=== PATIENT | female | born 1970 | race Caucasian/White ===

== ENCOUNTER → 2020-04-15 | Day surgery (SDC) | payer OTHER ==
[~2020-04-15] MED LIST: HYDROXYZINE HCL25 MG PO; HYOSCYAMINE 0.125 MG TAB ONE; METFORMIN HCL500 MG PO; METOPROLOL TART25 MG PO; PAMELOR25 MG PO; PROPRANOLOL HCL10 MG PO; PROTONIX20 MG PO; RISPERIDONE1 MG PO; ROBAXIN-750750 MG PO
[2020-04-15 15:25] VITALS: BP 120/57
--- NOTE | 2020-04-15 15:29 | Operative Report ---
DATE OF PROCEDURE: 04/15/2020 SURGEON: Adama Lerner MD PROCEDURE: Colonoscopy with polypectomy. INDICATIONS FOR COLONOSCOPY: Rectal bleeding, history of diverticulitis. MEDICATIONS: The patient was done under MAC. Please see anesthesiologist's note. PROCEDURE IN DETAIL: With the patient in left lateral decubitus position, a flexible fiberoptic Olympus colonoscope was inserted into the rectum with ease and advanced all the way to the cecum. A minute polyp was removed per cold biopsy forceps from the cecum, ascending, transverse appeared to be within normal limits. Diverticular disease was noted to involve the distal descending and the sigmoid colon. Two polyps were hot biopsied from the sigmoid colon. The scope was then retroflexed into the distal rectum and small internal hemorrhoids were noted, none of which was actively bleeding. The scope was then straightened out and it was subsequently withdrawn. Patient tolerated the procedure well. IMPRESSION: 1. Cecal polyp, cold biopsied. 2. Diverticulosis. 3. Sigmoid colon polyp x2, hot biopsied. 4. Internal hemorrhoids, none actively bleeding. PLAN: Follow up histology. Initiate high-fiber, low-fat diet. Initiate high-fiber supplement. Hydrocortisone suppositories 25 mg b.i.d. x10 days and then p.r.n. The patient might benefit from a followup colonoscopy in 3 years. Adama Lerner MD [facility] [place] /[id number] cc: Preeti Grimaldo MD
== END | disposition home or self-care (01) ==
LOC: OR 11:40
PROVIDERS: ATTEND Internal Medicine Gastroenterology
DX: K57.92 Diverticulitis of intestine, part unspecified, without perforation or abscess without bleeding (principal); D12.0 Benign neoplasm of cecum; K64.8 Other hemorrhoids; K62.5 Hemorrhage of anus and rectum; K21.9 Gastro-esophageal reflux disease without esophagitis; G47.33 Obstructive sleep apnea (adult) (pediatric); R00.0 Tachycardia, unspecified; E11.9 Type 2 diabetes mellitus without complications; G25.81 Restless legs syndrome; I10 Essential (primary) hypertension; E66.01 Morbid (severe) obesity due to excess calories; F25.9 Schizoaffective disorder, unspecified; Z88.0 Allergy status to penicillin; Z88.2 Allergy status to sulfonamides; Z91.040 Latex allergy status; Z01.810 Encounter for preprocedural cardiovascular examination; Z01.812 Encounter for preprocedural laboratory examination; Z11.59 Encounter for screening for other viral diseases; Z79.84 Long term (current) use of oral hypoglycemic drugs; Z68.43 Body mass index [BMI] 50.0-59.9, adult
CPT/HCPCS: 36415; 45378; 82948; 87635; 93005

== ENCOUNTER → 2020-08-01 | Outpatient (CLI) | payer OTHER ==
[~2020-08-01] MED LIST changes: -HYOSCYAMINE 0.125 MG TAB ONE
== END ==
LOC: RESP 12:48
PROVIDERS: ATTEND Internal Medicine
DX: R06.09 Other forms of dyspnea (principal)
CPT/HCPCS: 71046; 94060; 94664; 94727; 94729

== ENCOUNTER → 2020-08-15 | Outpatient (CLI) | payer OTHER | LOC: SLEEP 19:36 | PROVIDERS: ATTEND Internal Medicine | DX: G47.33 Obstructive sleep apnea (adult) (pediatric) (principal); Z11.59 Encounter for screening for other viral diseases | CPT/HCPCS: 95810; U0002 ==

== ENCOUNTER 2025-07-07 13:48 | Emergency (ER) | payer OTHER ==
[~2025-07-07] VITALS: Ht 167.6 cm; Wt 167.1 kg
[~2025-07-07 13:48] MED LIST changes: +ACETAMINOPHEN-1 EAC4 PO; +ALBUTEROL0.63 MG/3 NEB; +CLONAZEPAM0.5 MG PO; +DOXEPIN HCL25 MG PO; +FIBER LAX625 MG PO; +GEODON20 MG PO; +INGREZZA80 MG PO; +LEXAPRO20 MG PO; +LITHOBID300 MG PO; +MELATONIN3 MG PO; +PANTOPRAZOLE SO40 MG PO; +PROVENTIL HFA6.7 GM INH; +SEROQUEL100 MG PO; +SEROQUEL50 MG PO; +TRAZODONE HCL100 MG PO; +VITAMIN D250 MCG PO; +ZYLOPRIM100 MG PO
[2025-07-07] MEDS ORDERED: VENLAFAXINE HC150 MG (16:06)
[2025-07-07] MEDS ORDERED: ROSUVASTATIN CA40 MG (16:06)
[2025-07-07] MEDS ORDERED: FARXIGA10 MG (16:06)
[2025-07-07] MEDS ORDERED: VITAMIN D350 MCG (16:06)
[2025-07-07] MEDS ORDERED: OMEGA 3 1,0001 EACH PO (16:06)
[2025-07-07] MEDS ORDERED: CORAL CALCIUM1 GM PO (16:06)
[2025-07-07] MEDS ORDERED: MYRBETRIQ50 MG (16:06)
[2025-07-07] MEDS ORDERED: LASIX40 MG PO (16:06)
[2025-07-07] MEDS ORDERED: ROPINIROLE HCL1 MG PO (16:06)
[2025-07-07] MEDS ORDERED: ABILIFY30 MG (16:06)
[2025-07-07] MEDS ORDERED: COLACE100 MG/10 PO (16:06)
[2025-07-07] MEDS ORDERED: FLONASE ALLERG9.9 ML INH (16:06)
[2025-07-07] MEDS ORDERED: ENTRESTO 97 MG1 EACH (16:06)
[2025-07-07] MEDS ORDERED: VITAMIN C1000 MG PO (16:06)
[2025-07-07 16:16] VITALS: PULSE 94; RESP 20; TEMP 97.9
[2025-07-07 16:49] VITALS: BP 116/72; PULSE 94; RESP 18; O2SAT 97
== END 2025-07-07 16:55 | disposition home or self-care (01) ==
LOC: FSED 14:00
DX: R05.9 Cough, unspecified (principal); R60.9 Edema, unspecified; I10 Essential (primary) hypertension; I50.9 Heart failure, unspecified; G47.30 Sleep apnea, unspecified; J45.909 Unspecified asthma, uncomplicated
CPT/HCPCS: 71046; 80053; 83880; 84484; 85025; 85379; 99283